=== PATIENT | male | born 1980 | race African-American/Black ===

== ENCOUNTER 2020-11-02 23:05 | Emergency (ER) | payer SELFPAY ==
[2020-11-03 02:30] VITALS: BP 136/75
[2020-11-03] MEDS ORDERED: CEPHALEXIN MONOHYDRATE 500 MG CAPSULE PO ONE (02:30)
[2020-11-03] MEDS ORDERED: PERTUSS(ACELL),DIPH,TET VAC/PF 0.5 ML SYRINGE IM. ONE (02:30)
== END 2020-11-03 02:59 | disposition home or self-care (01) ==
LOC: EMS 23:11
DX: S91.332A Puncture wound without foreign body, left foot, initial encounter (principal); F17.210 Nicotine dependence, cigarettes, uncomplicated; F12.90 Cannabis use, unspecified, uncomplicated; F15.90 Other stimulant use, unspecified, uncomplicated; W22.8XXA Striking against or struck by other objects, initial encounter; Y93.89 Activity, other specified; Y92.89 Other specified places as the place of occurrence of the external cause; Y99.8 Other external cause status
CPT/HCPCS: 90715; 99283